=== PATIENT | male | born 1965 | race American Indian/Alaskan Native ===

== ENCOUNTER 2020-02-05 08:20 | Day surgery (SDC) | payer OTHER ==
[~2020-02-05 08:20] MED LIST: SODIUM CHLORIDE 0.9% 1000 ML 1,000 ML IV SCH; ceFAZolin/Water 2 GM/20 ML 2 GM/20 ML SYRINGE IV NR; fentaNYL 100 MCG/2 ML INJ IV PRN
[2020-02-05] MEDS ORDERED: INSULIN REGULAR, HUMAN 100 UNITS/1 ML SUB-Q NR (09:17)
[2020-02-05 09:29] LABS: Hematocrit 29.1 % (35.5-45.6); Hemoglobin 9.1 gm/dl (11.8-15.2); Mean Corpuscular HGB Conc 31 % (32-34); Mean Corpuscular Volume 101 fl (84-94); Red Blood Count 2.89 M/mm3 (3.65-5.03)
[2020-02-05] MEDS ORDERED: carvediloL 12.5 MG TAB PO NR (09:31)
--- NOTE | 2020-02-05 09:33 | Anesthesia Consultation ---
Anesthesia Consult and Med Hx Date of service: 02/05/20 - Airway Anesthetic Teeth Evaluation: Poor (2 remaining teeth; left incisor loose) ROM Head & Neck: Adequate Mental/Hyoid Distance: Adequate Mallampati Class: Class II Intubation Access Assessment: Probably Good - Pulmonary Exam CTA: Yes - Cardiac Exam Cardiac Exam: RRR - Pre-Operative Health Status ASA Pre-Surgery Classification: ASA4 Proposed Anesthetic Plan: MAC Nerve Block: supraclavicular - Pulmonary Hx Smoking: Yes Hx Asthma: Yes (daily inhalers) Hx Respiratory Symptoms: No - Cardiovascular System Hx Hypertension: Yes Hx Heart Attack/AMI: No Hx Percutaneous Transluminal Coronary Angioplasty (PTCA): No Hx Heart Murmur: Yes - Central Nervous System CVA: No - Gastrointestinal Hx Gastroesophageal Reflux Disease: Yes (well controlled) - Endocrine Hx End Stage Renal Disease: Yes (last HD 02/04/2020) Hx Cirrhosis: Yes (last paracentisis earlier this year) Hx Liver Disease: Yes (HCV) Hx Non-Insulin Dependent Diabetes: Yes Hx Thyroid Disease: No - Hematic Hx Anemia: Yes Hx Sickle Cell Disease: No - Other Systems Hx Obesity: No - Additional Comments Anesthesia Medical History Comments: No hx anesthetic complications. Will give home dose carvedilol in preop.
--- NOTE | 2020-02-05 09:34 | Anesthesia Day of Surgery ---
Anesthesia Day of Surgery - Day of Surgery Patient Examined: Yes Patient H&P Reviewed: Yes Patient is NPO: Yes Beta Blockers: Yes (carvedilol given in preop)
[2020-02-05 09:37] LABS: Red Cell Distribution Width 20.4 % (13.2-15.2)
[2020-02-05] MEDS ORDERED: BUPIVACAINE/PF (0.5%) 5 MG/1 ML 30 ML VIAL INFILTRATI ONE (09:37)
[2020-02-05 09:46] LABS: Calcium 8.4 mg/dL (8.4-10.2)
[2020-02-05 10:35] LABS: Platelet Count 34 K/mm3 (140-440)
[2020-02-05] MEDS ORDERED: HEPARIN 10,000 UNITS/10 ML VIAL ONE (11:00)
[2020-02-05] MEDS ORDERED: SODIUM CHLORIDE 0.9% 500 ML 500 ML ONE (11:00)
[2020-02-05] MEDS ORDERED: SODIUM CHLORIDE 0.9% 250ML 0 ML ONE (11:01)
[2020-02-05] MEDS ORDERED: rifAMPin 600 MG VIAL ONE (11:01)
[2020-02-05] MEDS ORDERED: MIDAZOLAM 2 MG/2 ML INJ ONE (11:05)
[2020-02-05] MEDS ORDERED: propofoL 200 MG/20 ML VIAL IV ONE ×3 (11:05→12:43)
[2020-02-05] MEDS ORDERED: HYDROmorphone 1 MG/1 ML INJ ONE (11:05)
[2020-02-05] MEDS ORDERED: LIDOCAINE MPF (2%) 20 MG/1 ML VIAL 5 ML ONE (11:07)
[2020-02-05] MEDS ORDERED: SODIUM CHLORIDE 0.9% IRR 1,500 ML BOTTLE IR ONE (11:48)
[2020-02-05] MEDS ORDERED: SODIUM CHLORIDE 0.9% 500 ML IVPB IRRIGATION ONE (11:48)
[2020-02-05] MEDS ORDERED: HEPARIN 10,000 UNITS/10 ML VIAL IR ONE (12:47)
--- NOTE | 2020-02-05 14:02 | Short Stay Summary ---
Short Stay Documentation Date of service: 02/05/20 Narrative H&P: See H&P - History H&P: obtained from office - Allergies and Medications Current Medications: Allergies No Known Allergies Allergy (Verified 02/05/20 13:48) Home Medications Medication Instructions Recorded Confirmed Last Taken Type Albuterol INH(or & Nicu Only) 1 - 2 puff INHALATION PRN 01/31/20 02/05/20 02/04/20 19:00 History Complete Multi Tablet 1 tab PO DAILY 01/31/20 02/05/20 02/04/20 09:00 History Iron 65 mg PO DAILY 01/31/20 02/05/20 02/04/20 09:00 History Lactulose 30 mg PO BID 01/31/20 02/05/20 02/03/20 17:00 History Nitroglycerin [Nitrostat] 0.4 mg SUBLINGUAL PRN 01/31/20 02/05/20 08/04/19 08:00 History Vitamin B Complex Tablet 250 mg PO DAILY 01/31/20 02/05/20 02/04/20 09:00 History Vitamin D (Nf) 1.25 mg PO 1XW 01/31/20 02/05/20 02/01/20 09:00 History Xifaxan 550 mg PO DAILY 01/31/20 01/31/20 Unknown History carvediloL 12.5 mg PO BID 01/31/20 02/05/20 02/05/20 09:51 History glipiZIDE 5 mg MT BID 01/31/20 02/05/20 02/04/20 17:00 History Active Medications Fentanyl (Sublimaze) 100 mcg IV ONCE PRN PRN Reason: sedation for nerve block Last Admin: 02/05/20 10:52 Dose: 100 mcg Documented by: Cefazolin Sodium (Ancef/Sterile Water 2 Gm/20 Ml) 2 gm in 20 mls @ 80 mls/hr IV PREOP NR; Protocol Stop: 02/05/20 23:59 Sodium Chloride (Nacl 0.9% 1000 Ml) 1,000 mls @ 42 mls/hr IV DIRECT BRENNA Stop: 02/05/20 23:59 Last Admin: 02/05/20 09:15 Dose: 42 mls/hr Documented by: - Brief post op/procedure progress note Date of procedure: 06/03/20 Pre-op diagnosis: End-Stage Renal Disease Post-op diagnosis: same Procedure: Creation of Left Brachial Basilic Arteriovenous Fistula Anesthesia: regional Surgeon: ANTON MAGALLON Estimated blood loss: minimal Pathology: none Condition: stable - Disposition Condition at discharge: Good Disposition: DC-01 TO HOME OR SELFCARE Short Stay Discharge Plan Activity: other (No heavy lifting with left arm for 2 weeks.) Wound: open to air, keep clean and dry, other (Okay to wash the left arm wounds with soap and water but do not soak in water for 2 weeks. Use stress ball with left hand as often as possible to assist with maturing the left arteriovenous fistula.) Follow up with: ANTON MAGALLON MD [Staff Physician] - 14 Days Prescriptions: oxyCODONE [roxiCODONE] 5 mg PO Q6HR PRN #30 tablet PRN Reason: Pain
[2020-02-05] MEDS ORDERED: DEXTROSE 50% IN WATER (25GM) 50 ML SYRINGE IV ONE (14:07)
[2020-02-05] MEDS ORDERED: DEXTROSE 50% IN WATER (25GM) 50 ML VIAL IV ONE (14:08)
--- NOTE | 2020-02-05 14:08 | Operative Report ---
Operative Report Operative Report: Date of procedure: 02/05/2020 Pre-operative diagnosis: End-stage Renal Disease Post-operative diagnosis: End-stage Renal Disease Procedure(s): Creation of Left Brachial Artery to Basilic Arteriovenous Fistula Surgeon: Flaco Jimenez MD Brick Chimney Supervisor: None Anesthesia: Regional Block/MAC EBL: 50 mL Counts: Correct Complications: None Condition: Stable Findings: Palpable thrill at the completion of the case Specimen: None Indication: The patient is a 54-year-old male with a history of end-stage renal disease who is currently on hemodialysis through a right internal jugular permacath. He is in need of long-term dialysis access and was found to be a suitable candidate for creation of an arteriovenous fistula. He was given the risk, benefits, and alternative procedures and consented to the procedure. Description of Procedure: The patient was brought to the operating room after regional block was performed in the preoperative area and he was adequately sedated and his left arm was prepped and draped in normal sterile fashion. A transverse incision was then created just below the antecubital crease and carried down to the basilic vein using sharp dissection. The vein was found to be occluded at this segment of the vein so I made a longitudinal incision over the vein in the medial forearm and dissected the vein circumferentially ligating and dividing all side branches. I then suture ligated and divided the vein. I then ran a 3 Faisal proximally in the vein, to ensure patency of the vein. I then flushed the vein with heparinized saline and controlled flow with a bulldog clamp. I transposed the vein from the medial incision towards the brachial artery incision near the antecubital crease. I then dissected out the brachial artery through this incision circumferentially both proximal and distal and controlled th artery with vessel loops. I placed the vessel loops on tension, controlling the flow through the artery, and created an arteriotomy using an 11 blade and Smith scissors. I created an end to side anastomosis between the basilic vein and br achial artery using a 6-0 Prolene in running fashion. Prior to completing the anastomosis I flushed the artery both proximally and distally and then advanced a 3 Faisal proximally to break the spasm in the artery. I completed the anastomosis and removed all vessel loops allowing flow into the fistula which had an excellent thrill. I achieved hemostasis with a combination of direct pressure, Mary Lou, and Quick Clot. Once hemostasis was achieved I anesthetized the wounds with 0.5% Marcaine. I closed both wounds in 2 layers using 3-0 Vicryl in a running fashion to close the deep dermal layers and 4-0 Monocryl in a running fashion in the subcuticular layers. I dressed the wounds with Dermabond. The patient tolerated the procedure well, all sponge needle and instrument counts were correct. The patient was taken to recovery in stable condition.
[2020-02-05 16:04] VITALS: BP 139/72
--- NOTE | 2020-02-05 16:59 | Post Anesthesia Evaluation ---
- Post Anesthesia Evaluation Patient Participated: Yes Airway Patent: Yes Stable Respiratory Function: Yes Nausea/Vomiting: No Temp > 96.8F: Yes Pain Manageable: Yes Adequeate Hydration: Yes Anesthesia Complications: No Other Comments: Patient continues to have motor and sensory block of LUE. Anticipate block resolution after d/c. Arm placed in sling and post-block instructions given.
[2020-02-06] MEDS ORDERED: MORPHINE 4 MG/1 ML INJ ONE (23:50)
== END 2020-02-05 08:21 | disposition home or self-care (01) ==
LOC: OR 08:20
PROVIDERS: ATTEND Surgery Vascular Surgery
DX: I12.0 Hypertensive chronic kidney disease with stage 5 chronic kidney disease or end stage renal disease (principal); E11.22 Type 2 diabetes mellitus with diabetic chronic kidney disease; N18.6 End stage renal disease; I20.8 Other forms of angina pectoris; E78.00 Pure hypercholesterolemia, unspecified; K21.9 Gastro-esophageal reflux disease without esophagitis; M19.90 Unspecified osteoarthritis, unspecified site; D64.9 Anemia, unspecified; Z79.899 Other long term (current) drug therapy; Z87.891 Personal history of nicotine dependence
CPT/HCPCS: 36415; 36821; 80048; 82962; 85027; C1757; J0690; J1170; J1644; J2250; J2704; J3010; J7030; J7040; J1815; J2270; J3490; J7050

== ENCOUNTER 2020-02-06 18:39 | Inpatient (IN) | payer OTHER ==
--- NOTE | 2020-02-06 19:59 | Event Note ---
ED Screening Note ED Screening Note: fistula placed today in the left AV Dr. Flaco Jimenez states he began having pain, swelling, erythema, states began around 12 PM never had graft placed before for dialysis PMHx ERSD, cirrhosis alcohol, DM, HTN no allergies to meds swelling to the entire LUE erythema increased warmth This initial assessment/diagnostic orders/clinical plan/treatment(s) is/are subject to change based on patients health status, clinical progression and re- assessment by fellow clinical providers in the ED. Further treatment and workup at subsequent clinical providers discretion. Patient/guardian urged not to elope from the ED as their condition may be serious if not clinically assessed and managed. Initial orders include: labs
[2020-02-06 20:28] LABS: Hematocrit 27.5 % (35.5-45.6); Hemoglobin 8.7 gm/dl (11.8-15.2); Mean Corpuscular HGB Conc 32 % (32-34); Mean Corpuscular Volume 100 fl (84-94); Red Blood Count 2.74 M/mm3 (3.65-5.03)
[2020-02-06 20:33] LABS: Platelet Count 33 K/mm3 (140-440)
[2020-02-06 20:38] LABS: INR 1.8 (0.87-1.13); Partial Thromboplastin Time 38.8 Sec. (24.2-36.6)
[2020-02-06 20:54] LABS: Albumin 2.9 g/dL (3.9-5); Calcium 7.9 mg/dL (8.4-10.2)
--- NOTE | 2020-02-06 20:54 | Emergency Department Report ---
HPI - General Chief Complaint: Skin/Abscess/Foreign Body Time Seen by Provider: 02/06/20 19:55 - HPI HPI: 54-year-old male presents to the emergency department with a complaint of pain, swelling and redness to the left arm where the patient had a brachial artery to basilic AV fistula created yesterday by Dr. Jimenez. The patient is receiving dialysis currently through a right IJ permacath. He was sent home with pain medication for which the patient said he took a dose this afternoon without much relief. He denies any fever, chest pain, shortness of breath. Patient also has a history of chronic back pain, asthma, diabetes, GERD, hypertension, and liver cirrhosis. He previously had hepatitis C but says that it was "treated." The patient went to get dialysis today and was found to have a fever of 101 F and was sent in for further evaluation of this fever and his left arm symptoms and did not have dialysis completed today. ED Past Medical Hx - Past Medical History Hx Hypertension: Yes Hx Heart Attack/AMI: No Hx Diabetes: Yes Hx GERD: Yes Hx Liver Disease: Yes (HCV) Hx Renal Disease: Yes Hx Sickle Cell Disease: No Hx Arthritis: Yes (BACK PAIN CHRONIC) Hx Kidney Stones: No Hx Asthma: Yes (daily inhalers) Hx COPD: No Hx Tuberculosis: No Hx HIV: No - Surgical History Additional Surgical History: hernia repair x2, hemorroidectomy - Social History Smoking Status: Former Smoker Substance Use Type: None - Medications Home Medications: Home Medications Medication Instructions Recorded Confirmed Last Taken Type Albuterol INH(or & Nicu Only) 1 - 2 puff INHALATION PRN 01/31/20 02/06/20 02/04/20 19:00 History Complete Multi Tablet 1 tab PO DAILY 01/31/20 02/06/20 02/04/20 09:00 History Iron 65 mg PO DAILY 01/31/20 02/06/20 02/04/20 09:00 History Lactulose 30 mg PO BID 01/31/20 02/06/20 02/03/20 17:00 History Nitroglycerin [Nitrostat] 0.4 mg SUBLINGUAL PRN 01/31/20 02/06/20 08/04/19 08:00 History Vitamin B Complex Tablet 250 mg PO DAILY 01/31/20 02/06/20 02/04/20 09:00 History Vitamin D (Nf) 1.25 mg PO 1XW 01/31/20 02/06/20 02/01/20 09:00 History Xifaxan 550 mg PO DAILY 01/31/20 02/06/20 Unknown History carvediloL 12.5 mg PO BID 01/31/20 02/06/20 02/05/20 09:51 History glipiZIDE 5 mg OK BID 01/31/20 02/06/20 02/04/20 17:00 History oxyCODONE [roxiCODONE] 5 mg PO Q6HR PRN #30 tablet 02/05/20 02/06/20 Unknown Rx ED Review of Systems ROS: Stated complaint: ARM SWOLLEN AT PORT SITE /FEVER Other details as noted in HPI Comment: All other systems reviewed and negative Constitutional: fever. denies: malaise Eyes: denies: eye pain, vision change ENT: denies: ear pain, throat pain Respiratory: denies: cough, shortness of breath Cardiovascular: denies: chest pain, palpitations Gastrointestinal: denies: abdominal pain, vomiting Genitourinary: denies: dysuria, discharge Musculoskeletal: joint swelling, arthralgia, myalgia Skin: change in color. denies: pruritus Neurological: denies: numbness, paresthesias Physical Exam - Physical Exam Vital Signs: Vital Signs 02/06/20 19:14 Temperature 99.0 F Pulse Rate 91 H Respiratory 20 Rate Blood Pressure 141/67 O2 Sat by Pulse 97 Oximetry Physical Exam: GENERAL: The patient is well-developed well-nourished. HENT: Normocephalic. Atraumatic. Patient has moist mucous membranes. EYES: Extraocular motions are intact. NECK: Supple. Trachea is midline. CHEST/LUNGS: Clear to auscultation. There is no respiratory distress noted. HEART/CARDIOVASCULAR: Regular. There is no tachycardia. There is no murmur. ABDOMEN: Abdomen is soft, nontender. Patient has normal bowel sounds. There is no abdominal distention. SKIN: There is ecchymosis and erythema to the left antecubital fossa and the erythema also wraps around to the medial bicep. The incision site is closed without signs of dehiscence and there is no current bleeding or purulent discharge. NEURO: The patient is awake, alert, and oriented. The patient is cooperative. The patient has no focal neurologic deficits. Normal speech. MUSCULOSKELETAL: The left arm is very tender to palpation from the proximal forearm to the mid to proximal bicep. Radial pulse +2/4 and capillary refill less than 2 seconds to the affected left upper extremity. ED Course Vital Signs 02/06/20 19:14 Temperature 99.0 F Pulse Rate 91 H Respiratory 20 Rate Blood Pressure 141/67 O2 Sat by Pulse 97 Oximetry - Consultations Consultation #1: 02/07/20 00:53 Earlier in the evening I spoke with Dr. Lang, vascular surgery, regarding the patient's postop pain and concern for infection 1 day status post AV fistula placement. He agrees with the IV antibiotics, has asked for the patient to be made nothing by mouth after midnight, and they will see the patient as a consult. I was unable to get a venous Doppler ultrasound at this time but he did say that a soft tissue ultrasound may be helpful. I also spoke with Dr. Collins, nephrology, and they will consult on the patient and provide dialysis tomorrow. ED Medical Decision Making - Lab Data Result diagrams: 02/06/20 20:11 02/06/20 20:11 - Radiology Data Radiology results: report reviewed Ultrasound left upper extremity INDICATION: Left upper extremity pain and swell ing Region of fistula IMPRESSION: There is some subcutaneous edema identified in the region of the fistula however no drainable fluid collection is appreciated. - Medical Decision Making This patient presents with left upper extremity pain and swelling and concern for infection 1 day after having an AV fistula placed. Also the patient did not receive dialysis today when he was found to have a fever. The left arm is slightly swollen and there is some ecchymosis and erythema. Patient has a low- grade fever here. No leukocytosis. Patient has some anemia of chronic kidney disease. He has renal failure consistent with his end-stage renal disease. A soft tissue ultrasound shows some inflammation and edema around the area of the fistula but no drainable fluid collection. The patient has received IV antibiotics. He will be admitted to the hospital for a vascular and nephrology consult and for further evaluation and treatment. The patient was accepted for admission by the hospitalist, Dr. Payton. Critical Care Time: No Critical care attestation.: If time is entered above; I have spent that time in minutes in the direct care of this critically ill patient, excluding procedure time. ED Disposition Clinical Impression: Post-op pain, Left arm cellulitis, ESRD needing dialysis Arteriovenous fistula infection Qualifiers: Encounter type: initial encounter Qualified Code(s): T82.7XXA - Infection and inflammatory reaction due to other cardiac and vascular devices, implants and grafts, initial encounter Disposition: OP ADMIT IP TO THIS HOSP Is pt being admited?: Yes Condition: Fair Time of Disposition: 00:14
[2020-02-06 21:06] LABS: Basophils % (Manual) 0 % (0.0-1.8); Total Cells Counted 100
[2020-02-06 21:07] LABS: Platelet Estimate Appears Decreased
[2020-02-06 21:08] LABS: Anisocytosis 2+; Tear Drop Cells Rare
[2020-02-06] MEDS ORDERED: MORPHINE 4 MG/1 ML INJ IV ONE ×2 (21:10→23:45)
[2020-02-06] MEDS ORDERED: VANCOMYCIN/NS 1 GM/250 ML 1 GM/250 ML BAG IV ONE (22:00)
[2020-02-06] MEDS ORDERED: diphenhydrAMINE 50 MG/ML VIAL IV ONE (22:17)
--- NOTE | 2020-02-07 00:26 | Ultrasound Report ---
Ultrasound left upper extremity INDICATION: Left upper extremity pain and swelling Region of fistula IMPRESSION: There is some subcutaneous edema identified in the region of the fistula however no drain able fluid collection is appreciated. Signer Name: Tim Gunderson MD Signed: 02/07/2020 12:22 AM Workstation Name: [id number]
[2020-02-07] MEDS ORDERED: ACETAMINOPHEN 325 MG TAB PO PRN (01:31)
[2020-02-07] MEDS ORDERED: ONDANSETRON 4 MG/2 ML INJ IV PRN (01:32)
[2020-02-07] MEDS ORDERED: VANCOMYCIN PHARMACY TO DOSE IV SCH (02:00)
[2020-02-07] MEDS: MORPHINE 2 MG/1 ML INJ IV PRN ×3 (03:03→21:02)
[2020-02-07] MEDS: PIPERACIL-TAZO 2.25 GM/50 ML 2.25 GM/50 ML BAG IV SCH ×3 (05:45→21:01)
[2020-02-07] MEDS ORDERED: PIPERACILLIN/TAZOBACTAM 3.375 3.375 GM/50 ML BAG IV SCH (06:00)
--- NOTE | 2020-02-07 06:11 | History and Physical Report ---
History of Present Illness Date of examination: 02/07/20 Date of admission: 02/07/20 00:15 Chief complaint: Chief complaint is pain in the left forearm area History of present illness: History of presenting illness, patient is a 54-year-old male who had dialysis AV fistula put on the left forearm prior to presentation and was sent home with pain medications. Patient developed persistent pain in the left forearm area that became increasingly worse with time and patient came back to the emergency room. There was no history of fever or chills and there was no history of drainage from the procedure site, also patient denied history of nausea vomiting and denied history of chest pain or shortness of breath Past History Past Medical History: arthritis, diabetes, dialysis, ESRD, GERD, hepatitis (BACK PAIN, ASTHMA ), other (BACK PAIN , ASTHMA ) Past Surgical History: hernia repair, Other (HEMORROIDECTOMY) Social history: no significant social history Family history: no significant family history Medications and Allergies Allergies Allergy/AdvReac Type Severity Reaction Status Date / Time No Known Allergies Allergy Verified 02/05/20 13:48 Home Medications Medication Instructions Recorded Confirmed Last Taken Type Albuterol INH(or & Nicu Only) 1 - 2 puff INHALATION PRN 01/31/20 02/06/20 02/04/20 19:00 History Complete Multi Tablet 1 tab PO DAILY 01/31/20 02/06/20 02/04/20 09:00 History Iron 65 mg PO DAILY 01/31/20 02/06/20 02/04/20 09:00 History Lactulose 30 mg PO BID 01/31/20 02/06/20 02/03/20 17:00 History Nitroglycerin [Nitrostat] 0.4 mg SUBLINGUAL PRN 01/31/20 02/06/20 08/04/19 08:00 History Vitamin B Complex Tablet 250 mg PO DAILY 01/31/20 02/06/20 02/04/20 09:00 History Vitamin D (Nf) 1.25 mg PO 1XW 01/31/20 02/06/20 02/01/20 09:00 History Xifaxan 550 mg PO DAILY 01/31/20 02/06/20 Unknown History carvediloL 12.5 mg PO BID 01/31/20 02/06/20 02/05/20 09:51 History glipiZIDE 5 mg SC BID 01/31/20 02/06/20 02/04/20 17:00 History oxyCODONE [roxiCODONE] 5 mg PO Q6HR PRN #30 tablet 02/05/20 02/06/20 Unknown Rx Active Meds: Active Medications Acetaminophen (Tylenol) 650 mg PO Q4H PRN PRN Reason: Fever >101 Piperacillin Sod/Tazobactam Sod (Zosyn/Ns 2.25 Gm/50ml) 2.25 gm in 50 mls @ 100 mls/hr IV Q8HR [facility]; Protocol Last Admin: 02/07/20 05:45 Dose: 100 mls/hr Documented by: Morphine Sulfate (Morphine) 2 mg IV Q3H PRN PRN Reason: Pain, Moderate (4-6) Last Admin: 02/07/20 03:03 Dose: 2 mg Documented by: Ondansetron HCl (Zofran) 4 mg IV Q8H PRN PRN Reason: Nausea And Vomiting Review of Systems Constitutional: no weight loss, no weight gain, no fever, no chills, no night sweats, no weakness Eyes: bilateral: other (NO BILKATERAL EYE SYMPTOMS) Ears, nose, mouth and throat: no ear pain, no nose pain, no nasal congestion, no headache Cardiovascular: no chest pain, no palpitations, no rapid/irregular heart beat, no lightheadedness, no shortness of breath, no paroxysmal nocturnal dyspnea, no high blood pressure Respiratory: no cough, no shortness of breath, no wheezing, no pain on inspiration Gastrointestinal: no abdominal pain, no nausea, no vomiting, no diarrhea Genitourinary Male: no dysuria, no hematuria, no nocturia Rectal: no pain Musculoskeletal: no neck stiffness, no neck pain, no leg numbness/tingling, no redness of joints, no muscle weakness Integumentary: no rash, no pruritis, no redness, no sores, no wounds, no jaundice, no growths, no darkening of skin, no depigmentation Neurological: no head injury, no seizures, no syncope, no headaches Psychiatric: no anxiety Endocrine: no polydipsia, no polyuria, no excessive sweating, no palpatations, no high blood sugars Hematologic/Lymphatic: no easy bruising, no easy bleeding, no lymphadenopathy, no lymphedema Allergic/Immunologic: no urticaria, no persistent infections Exam - Constitutional Vitals: Temp Pulse Resp BP Pulse Ox 99.5 F 74 18 131/75 99 02/07/20 02:48 02/07/20 02:48 02/07/20 02:48 02/07/20 02:48 02/07/20 02:48 General appearance: Present: severe distress - EENT Eyes: Present: PERRL, EOM intact ENT: hearing intact, clear oral mucosa - Neck Neck: Present: supple, normal ROM. Absent: enlarged thyroid, carotid bruits - Respiratory Respiratory effort: normal - Cardiovascular Rhythm: regular Heart Sounds: Present: S1 & S2. Absent: gallop, systolic murmur, diastolic murmur, click - Extremities Extremities: no ischemia, No edema - Abdominal General gastrointestinal: Present: soft, non-tender, non-distended. Absent: tender, distended, hepatomegaly, splenomegaly Male genitourinary: Present: deferred - Rectal Rectal Exam: deferred - Integumentary Integumentary: Present: clear, warm, dry. Absent: jaundice - Musculoskeletal Musculoskeletal: strength equal bilaterally Results - Labs CBC & Chem 7: 02/06/20 20:11 02/06/20 20:11 Labs: Laboratory Last Values WBC 9.8 K/mm3 (4.5-11.0) 02/06/20 20:11 RBC 2.74 M/mm3 (3.65-5.03) L 02/06/20 20:11 Hgb 8.7 gm/dl (11.8-15.2) L 02/06/20 20:11 Hct 27.5 % (35.5-45.6) L 02/06/20 20:11 MCV 100 fl (84-94) H 02/06/20 20:11 MCH 32 pg (28-32) 02/06/20 20:11 MCHC 32 % (32-34) 02/06/20 20:11 RDW 20.0 % (13.2-15.2) H 02/06/20 20:11 Plt Count 33 K/mm3 (140-440) L 02/06/20 20:11 [place] % (Auto) [employer] 02/06/20 20:11 Add Manual Diff Complete 02/06/20 20:11 Total Counted 100 02/06/20 20:11 Seg Neuts % (Manual) 86.0 % (40.0-70.0) H 02/06/20 20:11 Band Neutrophils % 0 % 02/06/20 20:11 Lymphocytes % (Manual) 7.0 % (13.4-35.0) L 02/06/20 20:11 Reactive Lymphs % (Man) 0 % 02/06/20 20:11 Monocytes % (Manual) 6.0 % (0.0-7.3) 02/06/20 20:11 Eosinophils % (Manual) 1.0 % (0.0-4.3) 02/06/20 20:11 Basophils % (Manual) 0 % (0.0-1.8) 02/06/20 20:11 Metamyelocytes % 0 % 02/06/20 20:11 Myelocytes % 0 % 02/06/20 20:11 Promyelocytes % 0 % 02/06/20 20:11 Blast Cells % 0 % 02/06/20 20:11 Nucleated RBC % Not Reportable 02/06/20 20:11 Seg Neutrophils # Man 8.4 K/mm3 (1.8-7.7) H 02/06/20 20:11 Band Neutrophils # 0.0 K/mm3 02/06/20 20:11 Lymphocytes # (Manual) 0.7 K/mm3 (1.2-5.4) L 02/06/20 20:11 Abs React Lymphs (Man) 0.0 K/mm3 02/06/20 20:11 Monocytes # (Manual) 0.6 K/mm3 (0.0-0.8) 02/06/20 20:11 Eosinophils # (Manual) 0.1 K/mm3 (0.0-0.4) 02/06/20 20:11 Basophils # (Manual) 0.0 K/mm3 (0.0-0.1) 02/06/20 20:11 Metamyelocytes # 0.0 K/mm3 02/06/20 20:11 Myelocytes # 0.0 K/mm3 02/06/20 20:11 Promyelocytes # 0.0 K/mm3 02/06/20 20:11 Blast Cells # 0.0 K/mm3 02/06/20 20:11 WBC Morphology Not Reportable 02/06/20 20:11 Hypersegmented Neuts Not Reportable 02/06/20 20:11 Hyposegmented Neuts Not Reportable 02/06/20 20:11 Hypogranular Neuts Not Reportable 02/06/20 20:11 Smudge Cells Not Reportable 02/06/20 20:11 Toxic Granulation Not Reportable 02/06/20 20:11 Toxic Vacuolation Not Reportable 02/06/20 20:11 Dohle Bodies Not Reportable 02/06/20 20:11 Pelger-Huet Anomaly Not Reportable 02/06/20 20:11 Enriqueta Rods Not Reportable 02/06/20 20:11 Platelet Estimate Appears decreased 02/06/20 20:11 Clumped Platelets Not Reportable 02/06/20 20:11 Plt Clumps, EDTA Not Reportable 02/06/20 20:11 Large Platelets Not Reportable 02/06/20 20:11 Giant Platelets Not Reportable 02/06/20 20:11 Platelet Satelliting Not Reportable 02/06/20 20:11 Plt Morphology Comment Not Reportable 02/06/20 20:11 RBC Morphology Not Reportable 02/06/20 20:11 Dimorphic RBCs Not Reportable 02/06/20 20:11 Polychromasia Not Reportable 02/06/20 20:11 Hypochromasia Not Reportable 02/06/20 20:11 Poikilocytosis Not Reportable 02/06/20 20:11 Anisocytosis 2+ 02/06/20 20:11 Microcytosis Not Reportable 02/06/20 20:11 Macrocytosis Not Reportable 02/06/20 20:11 Spherocytes Not Reportable 02/06/20 20:11 Pappenheimer Bodies Not Reportable 02/06/20 20:11 Sickle Cells Not Reportable 02/06/20 20:11 Target Cells Not Reportable 02/06/20 20:11 Tear Drop Cells Rare 02/06/20 20:11 Ovalocytes Not Reportable 02/06/20 20:11 Helmet Cells Not Reportable 02/06/20 20:11 Olivo-Garrison Bodies Not Reportable 02/06/20 20:11 [place] Rings Not Reportable 02/06/20 20:11 Lilia Cells Not Reportable 02/06/20 20:11 Bite Cells Not Reportable 02/06/20 20:11 Crenated Cell Not Reportable 02/06/20 20:11 Elliptocytes Rare 02/06/20 20:11 Acanthocytes (Spur) Not Reportable 02/06/20 20:11 Rouleaux Not Reportable 02/06/20 20:11 Hemoglobin C Crystals Not Reportable 02/06/20 20:11 Schistocytes Not Reportable 02/06/20 20:11 Malaria parasites Not Reportable 02/06/20 20:11 Sha Bodies Not Reportable 02/06/20 20:11 Hem Pathologist Commnt No 02/06/20 20:11 PT 20.4 Sec. (12.2-14.9) H 02/06/20 20:11 INR 1.80 (0.87-1.13) H 02/06/20 20:11 APTT 38.8 Sec. (24.2-36.6) H 02/06/20 20:11 Sodium 127 mmol/L (137-145) L D 02/06/20 20:11 Potassium 4.4 mmol/L (3.6-5.0) 02/06/20 20:11 Chloride 94.7 mmol/L (98-107) L 02/06/20 20:11 Carbon Dioxide 17 mmol/L (22-30) L 02/06/20 20:11 Anion Gap 20 mmol/L 02/06/20 20:11 BUN 43 mg/dL (9-20) H 02/06/20 20:11 Creatinine 9.0 mg/dL (0.8-1.5) H 02/06/20 20:11 Estimated GFR 7 ml/min 02/06/20 20:11 BUN/Creatinine Ratio 5 % 02/06/20 20:11 Glucose 274 mg/dL (75-100) H 02/06/20 20:11 Lactic Acid 1.70 mmol/L (0.7-2.0) 02/06/20 20:11 Calcium 7.9 mg/dL (8.4-10.2) L 02/06/20 20:11 Total Bilirubin 1.20 mg/dL (0.1-1.2) 02/06/20 20:11 AST 43 units/L (5-40) H 02/06/20 20:11 ALT 14 units/L (7-56) 02/06/20 20:11 Alkaline Phosphatase 164 units/L (35-129) H 02/06/20 20:11 Total Protein 6.4 g/dL (6.3-8.2) 02/06/20 20:11 Albumin 2.9 g/dL (3.9-5) L 02/06/20 20:11 Albumin/Globulin Ratio 0.8 % 02/06/20 20:11 Suazo/IV: Voiding Method Toilet IV Catheter Type [righ arm] Peripheral IV Assessment and Plan - Patient Problems (1) Hyponatremia Current Visit: Yes Status: Acute Plan to address problem: 1. Fluid restriction to 1200 mL/day 2. Sodium level checks 4 hours after the first level was checked (2) Arteriovenous fistula infection Current Visit: Yes Status: Acute Qualifiers: Encounter type: initial encounter Qualified Code(s): T82.7XXA - Infection and inflammatory reaction due to other cardiac and vascular devices, implants and grafts, initial encounter Plan to address problem: 1. Patient will have vascular surgical consult with the on-call surgeon in [facility] group 2. IV vancomycin with pharmacy to dose and IV Zosyn 4.5 g daily 8 hours 3. IV morphine 2 mg every 3 hours as needed for pain and IV Zofran 4 mg every 8 hours for nausea and vomiting 4. Tylenol 650 mg by mouth every 4 hours for fever headache (3) ESRD needing dialysis Current Visit: Yes Status: Acute Plan to address problem: Patient will have nephrology consult with Dr. Collins (4) Left arm cellulitis Current Visit: Yes Status: Acute
--- NOTE | 2020-02-07 09:40 | Consultation ---
History of Present Illness - Reason for Consult Consult date: 02/07/20 end stage renal disease - History of Present Illness patient with ESRD on HD for the last 6 months, last tx was , he was admitted after having worsening pain in AVF site after surgery yesterday, vasular surgery consult requested and renal consult for HD management while inpatient. Past History Past Medical History: arthritis, diabetes, dialysis, ESRD, GERD, hepatitis (BACK PAIN, ASTHMA ), other (BACK PAIN , ASTHMA ) Past Surgical History: hernia repair, Other (HEMORROIDECTOMY) Social history: no significant social history Family history: no significant family history Medications and Allergies Allergies Allergy/AdvReac Type Severity Reaction Status Date / Time No Known Allergies Allergy Verified 02/05/20 13:48 Home Medications Medication Instructions Recorded Confirmed Last Taken Type Albuterol INH(or & Nicu Only) 1 - 2 puff INHALATION PRN 01/31/20 02/06/20 02/04/20 19:00 History Complete Multi Tablet 1 tab PO DAILY 01/31/20 02/06/20 02/04/20 09:00 History Iron 65 mg PO DAILY 01/31/20 02/06/20 02/04/20 09:00 History Lactulose 30 mg PO BID 01/31/20 02/06/20 02/03/20 17:00 History Nitroglycerin [Nitrostat] 0.4 mg SUBLINGUAL PRN 01/31/20 02/06/20 08/04/19 08:00 History Vitamin B Complex Tablet 250 mg PO DAILY 01/31/20 02/06/20 02/04/20 09:00 History Vitamin D (Nf) 1.25 mg PO 1XW 01/31/20 02/06/20 02/01/20 09:00 History Xifaxan 550 mg PO DAILY 01/31/20 02/06/20 Unknown History carvediloL 12.5 mg PO BID 01/31/20 02/06/20 02/05/20 09:51 History glipiZIDE 5 mg DE BID 01/31/20 02/06/20 02/04/20 17:00 History oxyCODONE [roxiCODONE] 5 mg PO Q6HR PRN #30 tablet 02/05/20 02/06/20 Unknown Rx Active Meds: Active Medications Acetaminophen (Tylenol) 650 mg PO Q4H PRN PRN Reason: Fever >101 Piperacillin Sod/Tazobactam Sod (Zosyn/Ns 2.25 Gm/50ml) 2.25 gm in 50 mls @ 100 mls/hr IV Q8HR [facility]; Protocol Last Admin: 02/07/20 05:45 Dose: 100 mls/hr Documented by: Morphine Sulfate (Morphine) 2 mg IV Q3H PRN PRN Reason: Pain, Moderate (4-6) Last Admin: 02/07/20 03:03 Dose: 2 mg Documented by: Ondansetron HCl (Zofran) 4 mg IV Q8H PRN PRN Reason: Nausea And Vomiting Review of Systems All systems: negative (pain at AVF site, SOB) Exam - Vital Signs Vital signs: Vital Signs Temp Pulse Resp BP Pulse Ox 99.0 F 91 H 20 141/67 97 02/06/20 19:14 02/06/20 19:14 02/06/20 19:14 02/06/20 19:14 02/06/20 19:14 - General Appearance General appearance: well-developed, well-nourished EENT: ATNC, PERRL, mucous membranes moist Neck: Present: neck supple Respiratory: Decreased Breath Sounds Heart: regular, S1S2 Gastrointestinal: Present: normoactive bowel sounds. Absent: tenderness, distended Integumentary: no rash, warm and dry Neurologic: no focal deficit, no asterixis, alert and oriented x3 Musculoskeletal: Present: other (trace pitting edema in BLE) Psychiatric: cooperative Results - Lab Results 02/06/20 20:11 02/06/20 20:11 Most recent lab results Calcium 7.9 mg/dL (8.4-10.2) L 02/06/20 20:11 Assessment and Plan ESRD on HD Hypeonatremial likely to missing dialysis and volume overload Anemia in CKD HTN Hyperglycemia HD today and tomorrow for clerance and volume removal with low Na bath to prevent rapdi correction of sodium Iron panel in AM, will start SEAN after will assess dialysis needs daily renally dose meds strict I&O daily weight Shahbaz Vasques MD [phone]
[2020-02-07] MEDS ORDERED: SODIUM CHLORIDE 0.9% 100 ML IV PRN (10:09)
[2020-02-07 13:41] LABS: Hepatitis B Surface Antigen Non-Reactive (Negative); Hepatitis C Virus Antibody Reactive (NonReactive)
--- NOTE | 2020-02-07 17:03 | Event Note ---
Date: 02/07/20 54-year-old male with a history of end-stage renal disease had recent aVF left forearm. Patient return the next day with pain left forearm with redness. Admitted for AV fistula infection versus malformation. Patient plan to have vascular surgery consult. Empiric antibiotic treatment vancomycin and Zosyn. Supportive care with pain morphine Tylenol. Correct hyponatremia with fluid restriction. And renal consult for hemodialysis.
[2020-02-07] MEDS ORDERED: VANCOMYCIN/NS 1 GM/250 ML 1 GM/250 ML BAG IV ONE (20:00)
--- NOTE | 2020-02-07 20:01 | Consultation ---
History of Present Illness - Reason for Consult Consult date: 02/07/20 Infection after Creation of Left Arteriovenous Fistula Requesting physician: ANTON MERA - History of Present Illness The patient is a 54-year-old male with a history of end-stage renal disease and chronic cirrhosis who had creation of a left brachiobasilic arteriovenous fistula Monday of this week. He tolerated the procedure well and was discharged without complication. He presented to his dialysis center and was reported to have a fever as well as pain and some swelling at the operative site and was sent home without undergoing dialysis. He was subsequently sent to the emergency department and evaluated for possible infection of his arteriovenous fistula. We have been consulted to evaluate the patient for possible infection of the arteriovenous fistula. At this time the patient complains of pain at the site with swelling since creation. He has no additional complaints at this time. Past History Past Medical History: arthritis, diabetes, dialysis, ESRD, GERD, hepatitis (BACK PAIN, ASTHMA ), other (BACK PAIN , ASTHMA ) Past Surgical History: hernia repair, Other (HEMORROIDECTOMY) Social history: no significant social history Family history: no significant family history Medications and Allergies Allergies Allergy/AdvReac Type Severity Reaction Status Date / Time No Known Allergies Allergy Verified 02/05/20 13:48 Home Medications Medication Instructions Recorded Confirmed Last Taken Type Albuterol INH(or & Nicu Only) 1 - 2 puff INHALATION PRN 01/31/20 02/06/20 02/04/20 19:00 History Complete Multi Tablet 1 tab PO DAILY 01/31/20 02/06/20 02/04/20 09:00 History Iron 65 mg PO DAILY 01/31/20 02/06/20 02/04/20 09:00 History Lactulose 30 mg PO BID 01/31/20 02/06/20 02/03/20 17:00 History Nitroglycerin [Nitrostat] 0.4 mg SUBLINGUAL PRN 01/31/20 02/06/20 08/04/19 08:00 History Vitamin B Complex Tablet 250 mg PO DAILY 01/31/20 02/06/20 02/04/20 09:00 H istory Vitamin D (Nf) 1.25 mg PO 1XW 01/31/20 02/06/20 02/01/20 09:00 History Xifaxan 550 mg PO DAILY 01/31/20 02/06/20 Unknown History carvediloL 12.5 mg PO BID 01/31/20 02/06/20 02/05/20 09:51 History glipiZIDE 5 mg OK BID 01/31/20 02/06/20 02/04/20 17:00 History oxyCODONE [roxiCODONE] 5 mg PO Q6HR PRN #30 tablet 02/05/20 02/06/20 Unknown Rx Active Meds: Active Medications Acetaminophen (Tylenol) 650 mg PO Q4H PRN PRN Reason: Fever >101 Last Admin: 02/07/20 16:32 Dose: 650 mg Documented by: Piperacillin Sod/Tazobactam Sod (Zosyn/Ns 2.25 Gm/50ml) 2.25 gm in 50 mls @ 100 mls/hr IV Q8HR [facility]; Protocol Last Admin: 02/07/20 16:23 Dose: 100 mls/hr Documented by: Sodium Chloride (Nacl 0.9%) 100 mls @ 999 mls/hr IV SPENSER PRN PRN Reason: Hypotension Vancomycin HCl (Vancomycin/Ns 1 Gm/250 Ml) 1 gm in 250 mls @ 167.007 mls/hr IV ONCE ONE Stop: 02/07/20 21:29 Morphine Sulfate (Morphine) 2 mg IV Q3H PRN PRN Reason: Pain, Moderate (4-6) Last Admin: 02/07/20 10:31 Dose: 2 mg Documented by: Ondansetron HCl (Zofran) 4 mg IV Q8H PRN PRN Reason: Nausea And Vomiting Review of Systems All systems: negative Exam - Constitutional Vitals: Temp Pulse Resp BP Pulse Ox 101.8 F H 93 H 20 138/65 100 02/07/20 14:46 02/07/20 14:46 02/07/20 14:46 02/07/20 14:46 02/07/20 14:46 General appearance: Present: no acute distress, other (And was on hemodialysis during my evaluation) - Neck Neck: Present: supple - Respiratory Respiratory effort: normal - Cardiovascular Rhythm: regular - Extremities Extremities: no ischemia, abnormal (The patient has edema of the left forearm with ecchymosis in the antecubital fossa. He has serosanguineous drainage from his medial incision. There is mild erythema in the area with tenderness to palpation. The patient has a palpable thrill in the fistula and a palpable radial pulse.) Results - Labs CBC & Chem 7: 02/06/20 20:11 02/06/20 20:11 Labs: Abnormal lab results 02/06/20 02/06/20 02/06/20 Range/Units 20:11 20:11 20:11 RBC 2.74 L (3.65-5.03) M/mm3 Hgb 8.7 L (11.8-15.2) gm/dl Hct 27.5 L (35.5-45.6) % MCV 100 H (84-94) fl RDW 20.0 H (13.2-15.2) % Plt Count 33 L (140-440) K/mm3 Seg Neuts % (Manual) 86.0 H (40.0-70.0) % Lymphocytes % (Manual) 7.0 L (13.4-35.0) % Seg Neutrophils # Man 8.4 H (1.8-7.7) K/mm3 Lymphocytes # (Manual) 0.7 L (1.2-5.4) K/mm3 PT 20.4 H (12.2-14.9) Sec. INR 1.80 H (0.87-1.13) APTT 38.8 H (24.2-36.6) Sec. Sodium 127 L D (137-145) mmol/L Chloride 94.7 L (98-107) mmol/L Carbon Dioxide 17 L (22-30) mmol/L BUN 43 H (9-20) mg/dL Creatinine 9.0 H (0.8-1.5) mg/dL Glucose 274 H (75-100) mg/dL POC Glucose (70-105) Calcium 7.9 L (8.4-10.2) mg/dL AST 43 H (5-40) units/L Alkaline Phosphatase 164 H (35-129) units/L Albumin 2.9 L (3.9-5) g/dL Hepatitis C Antibody (NonReactive) 02/07/20 02/07/20 Range/Units 11:45 16:36 RBC (3.65-5.03) M/mm3 Hgb (11.8-15.2) gm/dl Hct (35.5-45.6) % MCV (84-94) fl RDW (13.2-15.2) % Plt Count (140-440) K/mm3 Seg Neuts % (Manual) (40.0-70.0) % Lymphocytes % (Manual) (13.4-35.0) % Seg Neutrophils # Man (1.8-7.7) K/mm3 Lymphocytes # (Manual) (1.2-5.4) K/mm3 PT (12.2-14.9) Sec. INR (0.87-1.13) APTT (24.2-36.6) Sec. Sodium (137-145) mmol/L Chloride (98-107) mmol/L Carbon Dioxide (22-30) mmol/L BUN (9-20) mg/dL Creatinine (0.8-1.5) mg/dL Glucose (75-100) mg/dL POC Glucose 207 H (70-105) Calcium (8.4-10.2) mg/dL AST (5-40) units/L Alkaline Phosphatase (35-129) units/L Albumin (3.9-5) g/dL Hepatitis C Antibody Reactive A (NonReactive) Assessment and Plan The patient is a 54-year-old male with a history of end-stage renal disease who had a creation of a left brachiobasilic arteriovenous fistula on Monday of this week. He presents with swelling, ecchymosis, and serosanguineous drainage from the wound. There is no evidence of infection at this time. The patient had postoperative bleeding secondary to his chronic thrombocytopenia that is related to his cirrhosis and liver failure. I recommend elevation of his arm to reduce the edema and possible platelet transfusion if he continues to bleed from the operative site.
[2020-02-07] MEDS ORDERED: INSULIN REGULAR, HUMAN 100 UNITS/1 ML IV ONE (23:06)
[2020-02-08] MEDS: MORPHINE 2 MG/1 ML INJ IV PRN (04:29)
[2020-02-08] MEDS: PIPERACIL-TAZO 2.25 GM/50 ML 2.25 GM/50 ML BAG IV SCH (05:25)
[2020-02-08 06:02] LABS: Hematocrit 25.6 % (35.5-45.6); Hemoglobin 8.2 gm/dl (11.8-15.2); Mean Corpuscular HGB Conc 32 % (32-34); Mean Corpuscular Volume 98 fl (84-94); Red Cell Distribution Width 19.2 % (13.2-15.2)
[2020-02-08 06:07] LABS: Platelet Count 30 K/mm3 (140-440)
[2020-02-08 06:17] LABS: Calcium 7.7 mg/dL (8.4-10.2)
[2020-02-08 07:17] LABS: Anisocytosis 1+; Basophils % (Manual) 0 % (0.0-1.8); Eosinophils % (Manual) 0 % (0.0-4.3); Hypochromasia 1+; Macrocytosis 1+; Total Cells Counted 100
[2020-02-08 07:18] LABS: Platelet Estimate Consistent w Auto
[2020-02-08] MEDS ORDERED: SODIUM CHLORIDE 0.9% 1000 ML 2,000 ML ONE (11:01)
--- NOTE | 2020-02-08 12:04 | Progress Note ---
Assessment and Plan ESRD on HD Hyponatremia likely to missing dialysis and volume overload Anemia in CKD HTN Hyperglycemia Hypocalcemia Hyperphosphatemia Hepatitis C Antibody was positive Plan: S/p HD yesterday for UF and clearance, UF removed 3.5 liters HD again today for UF and clearance, UF removed 3 liters Low Na bath to prevent rapid correction of sodium Epogen dosing for anemia management Vascular surgery evaluated pt, stated no evidence of infection at this time, recommended elevation of his arm to reduce the edema and possible platelet transfusion if he continues to bleed from the operative site. Renally dose meds Strict I&O Renal plan d/w Dr Collins Subjective Date of service: 02/08/20 Interval history: Pt seen in bed, states HD treatment went well and he is ready to go home today, no acute distress Objective - Vital Signs Vital signs: Vital Signs - 12hr 02/08/20 02/08/20 02/08/20 04:56 09:30 09:40 Temperature 98.5 F 97.8 F Pulse Rate 72 74 75 Respiratory 18 18 Rate Blood Pressure 116/62 117/62 122/70 O2 Sat by Pulse 100 Oximetry O2 Sat by Pulse 100 Oximetry [ Anterior Bilateral] 02/08/20 02/08/20 02/08/20 09:45 10:00 10:15 Temperature Pulse Rate 72 79 80 Respiratory Rate Blood Pressure 117/70 112/52 108/54 O2 Sat by Pulse Oximetry O2 Sat by Pulse Oximetry [ Anterior Bilateral] 02/08/20 02/08/20 02/08/20 10:30 10:45 11:00 Temperature Pulse Rate 80 78 75 Respiratory Rate Blood Pressure 106/62 109/62 113/50 O2 Sat by Pulse Oximetry O2 Sat by Pulse Oximetry [ Anterior Bilateral] - General Appearance General appearance: well-developed EENT: ATNC Neck: no JVD Respiratory: Present: Decreased Breath Sounds Cardiology: regular, S1S2, other (ACCESS: Left IJ Perm Catheter intact; Left AVF maturing) Gastrointestinal: normoactive bowel sounds Integumentary: warm and dry Neurologic: alert and oriented x3 Musculoskeletal: other (trace edema to BLE) Psychiatric: cooperative - Lab 02/08/20 04:37 02/08/20 04:37 Most recent lab results Calcium 7.7 mg/dL (8.4-10.2) L 02/08/20 04:37 Phosphorus 7.70 mg/dL (2.5-4.5) H 02/08/20 04:37 Medications & Allergies - Medications Allergies/Adverse Reactions: Allergies No Known Allergies Allergy (Verified 02/05/20 13:48) Home Medications: Home Medications Medication Instructions Recorded Confirmed Last Taken Type Albuterol INH(or & Nicu Only) 1 - 2 puff INHALATION PRN 01/31/20 02/06/20 02/04/20 19:00 History Complete Multi Tablet 1 tab PO DAILY 01/31/20 02/06/20 02/04/20 09:00 History Iron 65 mg PO DAILY 01/31/20 02/06/20 02/04/20 09:00 History Lactulose 30 mg PO BID 01/31/20 02/06/20 02/03/20 17:00 History Nitroglycerin [Nitrostat] 0.4 mg SUBLINGUAL PRN 01/31/20 02/06/20 08/04/19 08:00 History Vitamin B Complex Tablet 250 mg PO DAILY 01/31/20 02/06/20 02/04/20 09:00 History Vitamin D (Nf) 1.25 mg PO 1XW 01/31/20 02/06/20 02/01/20 09:00 History Xifaxan 550 mg PO DAILY 01/31/20 02/06/20 Unknown History carvediloL 12.5 mg PO BID 01/31/20 02/06/20 02/05/20 09:51 History glipiZIDE 5 mg [place] BID 01/31/20 02/06/20 02/04/20 17:00 History Acetaminophen [Acetaminophen TAB] 650 mg PO Q4H PRN tablet 02/08/20 Unknown Rx oxyCODONE [roxiCODONE] 5 mg PO Q6HR PRN #30 tablet 02/08/20 Unknown Rx Active Medications: Generic Name Dose Route Start Last Admin Trade Name Freq PRN Reason Stop Dose Admin Acetaminophen 650 mg 02/07/20 01:31 02/07/20 16:32 Tylenol PO 650 mg Q4H PRN Administration Fever >101 Piperacillin Sod/Tazobactam Sod 2.25 gm in 50 mls @ 100 mls/hr 02/07/20 06:00 02/08/20 05:25 Zosyn/Ns 2.25 Gm/50ml IV 100 mls/hr Q8HR BRENNA Administration Protocol Sodium Chloride 100 mls @ 999 mls/hr 02/07/20 10:09 Nacl 0.9% IV SPENSER PRN Hypotension Morphine Sulfate 2 mg 02/07/20 01:32 02/08/20 04:29 Morphine IV 2 mg Q3H PRN Administration Pain, Moderate (4-6) Ondansetron HCl 4 mg 02/07/20 01:32 Zofran IV Q8H PRN Nausea And Vomiting
--- NOTE | 2020-02-08 12:16 | Discharge Summary ---
Providers - Providers Date of Admission: 02/07/20 00:15 Date of discharge: 02/08/20 Attending physician: ANTON MERA 02/06/20 21:13 Consult to Physician [CONS] Routine Comment: Consulting Provider: MILE AMES Physician Instructions: Reason For Exam: concern for LUE fistula infection 02/06/20 21:18 Consult to Physician [CONS] Routine Comment: Consulting Provider: JANNIE BAER Physician Instructions: Reason For Exam: dialysis Primary care physician: TRIP FOLLOWER Hospitalization Condition: Good Pertinent studies: Hemodialysis Hospital course: 54-year-old male presented with arm swelling after AV fistula introduced. Patient came in with pain and swelling at the area. Evaluated by vascular no infection. Patient did have some postop bleeding secondary to thrombocytopenia which has resolved. The erythema and ecchymosis was typical for this procedure. Patient dialyzed prior to discharge and hemodynamically stable for discharge. Disposition: TO HOME OR SELFCARE - Discharge Diagnoses (1) Arteriovenous fistula infection Status: Acute Qualifiers: Encounter type: initial encounter Qualified Code(s): T82.7XXA - Infection and inflammatory reaction due to other cardiac and vascular devices, implants and grafts, initial encounter Comment: No evidence of infection. Empiric antibiotics discontinued. (2) ESRD needing dialysis Status: Acute Comment: Patient dialyzed throughout this hospital stay. (3) Post-op pain Status: Acute Comment: Postop pain treat with local narcotic. Will discontinue NSAIDs. Secondary to thrombocytopenia. (4) Liver cirrhosis Status: Chronic (5) Thrombocytopenia Status: Acute Comment: Chronic thrombocytopenia has not changed. Bleeding is stopped. Core Measure Documentation - Palliative Care Palliative Care/ Comfort Measures: Not Applicable - Core Measures Any of the following diagnoses?: none Exam - Constitutional Vitals: Temp Pulse Resp BP Pulse Ox 97.8 F 75 18 113/50 100 02/08/20 09:30 02/08/20 11:00 02/08/20 09:30 02/08/20 11:00 02/08/20 09:30 General appearance: Present: no acute distress, well-nourished - EENT Eyes: Present: PERRL ENT: hearing intact, clear oral mucosa - Neck Neck: Present: supple, normal ROM - Respiratory Respiratory effort: normal Respiratory: bilateral: CTA - Cardiovascular Heart Sounds: Present: S1 & S2. Absent: rub, click - Extremities Extremities: pulses symmetrical, No edema Extremity abnormal: edema, other (Ecchymosis no further serosanguineous drainage and some swelling at fistula site.) Peripheral Pulses: within normal limits - Abdominal General gastrointestinal: Present: soft, non-tender, non-distended, normal bowel sounds Male genitourinary: Present: normal - Integumentary Integumentary: Present: clear, warm, dry - Musculoskeletal Musculoskeletal: gait normal, strength equal bilaterally - Psychiatric Psychiatric: appropriate mood/affect, intact judgment & insight - Neurologic Neurologic: CNII-XII intact, moves all extremities Plan Activity: no restrictions Weight Bearing Status: Full Weight Bearing Diet: renal Follow up with: PRIMARY CARE, [Primary Care Provider] - 3-5 Days Prescriptions: oxyCODONE [roxiCODONE] 5 mg PO Q6HR PRN #30 tablet PRN Reason: Pain
--- NOTE | 2020-02-08 13:12 | Progress Note ---
Assessment and Plan Okay to discharge patient home. The patient will have close outpatient follow- up next week. Our office will contact the patient. Subjective Date of service: 02/08/20 Principal diagnosis: End-stage renal disease with left upper extremity bruising following fistul Interval history: Patient is doing well. He completed dialysis today with no significant complaints. He does have ecchymosis in the left upper arm secondary to decreased clotting ability due to his cirrhosis. Objective - Constitutional Vitals: Vital Signs - 12hr 02/08/20 02/08/20 02/08/20 04:56 09:30 09:40 Temperature 98.5 F 97.8 F Pulse Rate 72 74 75 Respiratory 18 18 Rate Blood Pressure 116/62 117/62 122/70 O2 Sat by Pulse 100 Oximetry O2 Sat by Pulse 100 Oximetry [ Anterior Bilateral] 02/08/20 02/08/20 02/08/20 09:45 10:00 10:15 Temperature Pulse Rate 72 79 80 Respiratory Rate Blood Pressure 117/70 112/52 108/54 O2 Sat by Pulse Oximetry O2 Sat by Pulse Oximetry [ Anterior Bilateral] 02/08/20 02/08/20 02/08/20 10:30 10:45 11:00 Temperature Pulse Rate 80 78 75 Respiratory Rate Blood Pressure 106/62 109/62 113/50 O2 Sat by Pulse Oximetry O2 Sat by Pulse Oximetry [ Anterior Bilateral] General appearance: Present: no acute distress - EENT Eyes: EOM intact ENT: hearing intact - Neck Neck: supple - Respiratory Respiratory effort: normal Extremity abnormal: edema - Gastrointestinal General gastrointestinal: Present: deferred Rectal Exam: deferred - Genitourinary Male genitourinary: deferred - Psychiatric Psychiatric: appropriate mood/affect, cooperative - Labs CBC & Chem 7: 02/08/20 04:37 02/08/20 04:37 Labs: Abnormal lab results 02/07/20 02/07/20 02/07/20 Range/Units 11:45 16:36 22:27 RBC (3.65-5.03) M/mm3 Hgb (11.8-15.2) gm/dl Hct (35.5-45.6) % MCV (84-94) fl RDW (13.2-15.2) % Plt Count (140-440) K/mm3 Seg Neuts % (Manual) (40.0-70.0) % Lymphocytes % (Manual) (13.4-35.0) % Monocytes % (Manual) (0.0-7.3) % Lymphocytes # (Manual) (1.2-5.4) K/mm3 Monocytes # (Manual) (0.0-0.8) K/mm3 Sodium (137-145) mmol/L Chloride (98-107) mmol/L BUN (9-20) mg/dL Creatinine (0.8-1.5) mg/dL Glucose (75-100) mg/dL POC Glucose 207 H 336 H (70-105) Calcium (8.4-10.2) mg/dL Phosphorus (2.5-4.5) mg/dL Iron (49-181) ug/dL TIBC (250-450) mcg/dL Hepatitis C Antibody Reactive A (NonReactive) 02/08/20 02/08/20 02/08/20 Range/Units 04:37 04:37 08:30 RBC 2.60 L (3.65-5.03) M/mm3 Hgb 8.2 L (11.8-15.2) gm/dl Hct 25.6 L (35.5-45.6) % MCV 98 H (84-94) fl RDW 19.2 H (13.2-15.2) % Plt Count 30 L (140-440) K/mm3 Seg Neuts % (Manual) 84.0 H (40.0-70.0) % Lymphocytes % (Manual) 4.0 L (13.4-35.0) % Monocytes % (Manual) 11.0 H (0.0-7.3) % Lymphocytes # (Manual) 0.3 L (1.2-5.4) K/mm3 Monocytes # (Manual) 0.9 H (0.0-0.8) K/mm3 Sodium 131 L (137-145) mmol/L Chloride 93.8 L (98-107) mmol/L BUN 36 H (9-20) mg/dL Creatinine 8.1 H (0.8-1.5) mg/dL Glucose 159 H (75-100) mg/dL POC Glucose 196 H (70-105) Calcium 7.7 L (8.4-10.2) mg/dL Phosphorus 7.70 H (2.5-4.5) mg/dL Iron 32 L (49-181) ug/dL TIBC 167 L (250-450) mcg/dL Hepatitis C Antibody (NonReactive) Medications & Allergies - Medications Allergies/Adverse Reactions: Allergies No Known Allergies Allergy (Verified 02/05/20 13:48) Home Medications: Home Medications Medication Instructions Recorded Confirmed Last Taken Type Albuterol INH(or & Nicu Only) 1 - 2 puff INHALATION PRN 01/31/20 02/06/20 02/04/20 19:00 History Complete Multi Tablet 1 tab PO DAILY 01/31/20 02/06/20 02/04/20 09:00 History Iron 65 mg PO DAILY 01/31/20 02/06/20 02/04/20 09:00 History Lactulose 30 mg PO BID 01/31/20 02/06/20 02/03/20 17:00 History Nitroglycerin [Nitrostat] 0.4 mg SUBLINGUAL PRN 01/31/20 02/06/20 08/04/19 08:00 History Vitamin B Complex Tablet 250 mg PO DAILY 01/31/20 02/06/20 02/04/20 09:00 History Vitamin D (Nf) 1.25 mg PO 1XW 01/31/20 02/06/20 02/01/20 09:00 History Xifaxan 550 mg PO DAILY 01/31/20 02/06/20 Unknown History carvediloL 12.5 mg PO BID 01/31/20 02/06/20 02/05/20 09:51 History glipiZIDE 5 mg [place] BID 01/31/20 02/06/20 02/04/20 17:00 History Acetaminophen [Acetaminophen TAB] 650 mg PO Q4H PRN tablet 02/08/20 Unknown Rx oxyCODONE [roxiCODONE] 5 mg PO Q6HR PRN #30 tablet 02/08/20 Unknown Rx Active Medications: Generic Name Dose Route Start Last Admin Trade Name Freq PRN Reason Stop Dose Admin Acetaminophen 650 mg 02/07/20 01:31 02/07/20 16:32 Tylenol PO 650 mg Q4H PRN Administration Fever >101 Piperacillin Sod/Tazobactam Sod 2.25 gm in 50 mls @ 100 mls/hr 02/07/20 06:00 02/08/20 05:25 Zosyn/Ns 2.25 Gm/50ml IV 100 mls/hr Q8HR BRENNA Administration Protocol Sodium Chloride 100 mls @ 999 mls/hr 02/07/20 10:09 Nacl 0.9% IV SPENSER PRN Hypotension Morphine Sulfate 2 mg 02/07/20 01:32 02/08/20 04:29 Morphine IV 2 mg Q3H PRN Administration Pain, Moderate (4-6) Ondansetron HCl 4 mg 02/07/20 01:32 Zofran IV Q8H PRN Nausea And Vomiting
[2020-02-08 13:28] VITALS: BP 118/76
== END 2020-02-08 15:05 | disposition home or self-care (01) | DRG 314 ==
LOC: ED 18:39 → IMCU 02-07 00:15 → 3A 02-07 15:16
PROVIDERS: ADMIT Internal Medicine; ATTEND Internal Medicine
PROC: 5A1D70Z Performance of Urinary Filtration, Intermittent, Less than 6 Hours Per Day (ICD-10-PCS; principal; 2020-02-07)
PROC: 5A1D70Z Performance of Urinary Filtration, Intermittent, Less than 6 Hours Per Day (ICD-10-PCS; 2020-02-08)
DX: T82.838A Hemorrhage due to vascular prosthetic devices, implants and grafts, initial encounter (principal); N18.6 End stage renal disease; L03.114 Cellulitis of left upper limb; E87.1 Hypo-osmolality and hyponatremia; I12.0 Hypertensive chronic kidney disease with stage 5 chronic kidney disease or end stage renal disease; K74.60 Unspecified cirrhosis of liver; Y83.2 Surgical operation with anastomosis, bypass or graft as the cause of abnormal reaction of the patient, or of later complication, without mention of misadventure at the time of the procedure; D69.6 Thrombocytopenia, unspecified; D63.1 Anemia in chronic kidney disease; E83.51 Hypocalcemia; E83.39 Other disorders of phosphorus metabolism; B19.20 Unspecified viral hepatitis C without hepatic coma; M19.90 Unspecified osteoarthritis, unspecified site; G89.18 Other acute postprocedural pain; E11.65 Type 2 diabetes mellitus with hyperglycemia; E11.22 Type 2 diabetes mellitus with diabetic chronic kidney disease; K21.9 Gastro-esophageal reflux disease without esophagitis; J45.909 Unspecified asthma, uncomplicated; Z79.899 Other long term (current) drug therapy; Y92.89 Other specified places as the place of occurrence of the external cause; Z99.2 Dependence on renal dialysis
CPT/HCPCS: 36415; 80048; 80053; 80074; 82140; 82728; 82962; 83550; 84100; 85007; 85025; 85027; 85610; 85730; 87040; 87641; G0378; C1757; J0690; J1170; J1200; J1644; J1815; J2250; J2270; J2543; J2704; J3010; J3370; J3490; J7030; J7040; J7050